=== PATIENT | female | born 1995 | race Caucasian/White ===

== ENCOUNTER 2022-06-16 03:45 | Outpatient (CLI) | payer MEDICAID, SELFPAY ==
[2022-06-16 16:53] LABS: HCT 33.8 % (36.0-46.0); HGB 11.4 g/dL (11.2-15.7); MCH 31.2 pg (27.0-33.0); MCHC 33.7 % (32.0-36.0); MCV 93 fL (80-95); MPV 10.3 fL (8.0-11.0); Platelet Count 182 10^3/uL (130-400); RBC 3.65 10^6/uL (3.93-5.22); RDW 13.3 % (11.7-14.6); RDW-SD 45.1 fL; WBC 14.99 10^3/uL (4.4-10.8)
[2022-06-16 17:02] LABS: Hemoglobin A1C 4.9 % (<5.7)
[2022-06-18 09:19] LABS: Hepatitis C Ab w Rflx HCV PCR Negative (Negative)
[2022-06-18 10:46] LABS: Varicella IgG Antibody Negative (See Note)
[2022-06-18 23:16] LABS: Syphilis IgG w/Reflex Nonreactive (Nonreactive)
== END 2022-06-16 03:46 | disposition home or self-care (01) ==
PROVIDERS: Visit Provider Advanced Practice Midwife
DX: Z34.93 Encounter for supervision of normal pregnancy, unspecified, third trimester (principal)
CPT/HCPCS: 36415; 85027; 86787; 86803; 86850; 86900; 86901; 83036; 86780

== ENCOUNTER 2022-06-16 17:03 | Outpatient (REF) | payer MEDICAID, SELFPAY ==
[2022-06-16 17:13] LABS: *AMPHETAMINES SCREEN URINE Negative (Negative); *BARBITURATES SCREEN URINE Negative (Negative); *BENZODIAZEPINES SCREEN URINE Negative (Negative); Cannabinoids THC Negative (Negative); Cocaine Screen,Urine Negative (Negative); METHADONE URINE SCREEN Negative (Negative); OPIATES URINE SCREEN Negative (Negative)
[2022-06-16 17:14] LABS: Tricyclic Antidepressants Negative (Negative)
[2022-06-22 12:28] LABS: Buprenorphine Negative ng/mL (Cutoff: 5.0); Norbuprenorphine Negative ng/mL (Cutoff: 2.5)
== END 2022-06-16 17:04 | disposition home or self-care (01) ==
LOC: LBN 17:03
PROVIDERS: Advanced Practice Midwife; Visit Provider Advanced Practice Midwife
DX: Z34.93 Encounter for supervision of normal pregnancy, unspecified, third trimester (principal); Z36.85 Encounter for antenatal screening for Streptococcus B; Z3A.35 35 weeks gestation of pregnancy
CPT/HCPCS: 80307; 80348; 87081

== ENCOUNTER 2022-07-17 12:04 | Inpatient (IN) | payer MEDICAID, SELFPAY ==
[2022-07-17] VITALS (62 sets, daily range): BP systolic 101–124; BP diastolic 56–76; PULSE 41–109; RESP 16–18; TEMP 36.4–36.7; O2SAT 99–100; BMI 25.7
[2022-07-17 12:25] LABS: HCT 38.3 % (36.0-46.0); HGB 12.6 g/dL (11.2-15.7); MCH 30.6 pg (27.0-33.0); MCHC 32.9 % (32.0-36.0); MCV 93 fL (80-95); MPV 10.6 fL (8.0-11.0); Platelet Count 178 10^3/uL (130-400); RBC 4.12 10^6/uL (3.93-5.22); RDW 13.3 % (11.7-14.6); RDW-SD 44.6 fL; WBC 14.91 10^3/uL (4.4-10.8)
--- NOTE | 2022-07-17 12:32 | W.PM.OBHPL1 ---
Date of service: 07/17/22 Time of Service: 12:32 Assessment and Plan Assessment and plan (1) Rupture, membranes, premature: Status: Acute Assessment and plan: Anticipate . Will continue to assess labor pattern. Augmentation of labor was discussed. Radha prefers to await spontaneous labor at this time. (2) Group B Streptococcus carrier, +RV culture, currently : Status: Acute Assessment and plan: Radha reports that she is hungry and would like to eat. Will plan to start antibiotics for propphylaxis after lunch. OB-HPI Labor/Delivery History of Present Illness Reason for Visit: Ruptured Membranes Chief Complaint: Suspected Rupture of Membranes , Associated Signs and Symptoms of Suspected ROM: none. PRIMITIVO Calculator Estimated Delivery Date Method Current WG Current Estimate 07/15/22 Ultrasound #1 40w 2d Other Estimates 07/17/22 Ultrasound #2 40w 0d Comments: Radha called this morning with a report of leaking tablespoon amounts of fluid. pos. pooling and nitrazine noted on admission. She presents with her and Sana davis for confirmation. She denies feeling contractions. History of Present Expected Delivery Route/Plan - CNM FOB/ - Tomasz Joshi (3rd child together) BG Wants to be active during early labor, plans epidural when active GBS POSITIVE, plan PCN prophylaxis in labor Specific Issues/Plan 1. History of macrosomia x2 w/mild SD for first 1a. Hgb A1C @ 36 wks is 4.9; nml glucola screen (117) 2. History of abdominoplasty & breast augmentation 3. History of anxiety/depression and depression 4. Vegan at the beginning of this , now eating meat 5, Varicella non immune 06/17, discuss with Radha and offer vaccine post . PFSH All Active Problems (Updated 07/17/22 @ 12:36 by Rochelle Wolfe CNM) Rupture, membranes, premature (Acute) Group B Streptococcus carrier, +RV culture, currently (Acute) Maternal varicella, non-immune (Acute) History of depression (Acute) Hx of macrosomia, of prior , currently (Acute) Anxiety (Chronic) (Acute) Medical History (Updated 07/17/22 @ 12:36 by Rochelle Wolfe CNM) Family history of thyroid disease in mother History of bulimia nervosa History of panic attacks History of shoulder dystocia in prior , currently in third trimester 2017 first delivery, weight 10 lb 2 oz, resolved in 1 minute, apgars 4/9 Surgical History (Updated 06/10/22 @ 13:40 by Aleyda Moreno) History of abdominoplasty September 2019 History of augmentation of both breasts Family History (Updated 06/10/22 @ 16:02 by Rochelle Wolfe CNM) Maternal Grandmother Diabetes Mother Hypothyroid Sleep apnea Social History Smoking risk assessment performed?: No History History 3 Para 2 Hx # Term Pregnancies 2 Multiple births 0 Hx # Pregnancies 0 Ectopic pregnancies 0 AB induced 0 Hx Number of Living Children 2 AB spontaneous 0 Past Pregnancies Del. Date GA/Weeks # Preg Succ Route Wgt Sex Labor Lgth Anesthesia Location [facility] 04/15/19 41 No Yes vaginal 10 lb 2 oz Male [address] [place] [address] 01/15/22 41 No Yes vaginal 9 lb Female [facility] Delivery Date: 04/15/19 Last Updated by: Rochelle Wolfe CNM shoulder dystocia, meconium group b strep, IOL for postdates, oligohydramnios Delivery Date: 01/15/22 Last Updated by: Rochelle Wolfe CNM Group B strep Meds Allergies and Home Medications Allergies Allergy/AdvReac Type Severity Reaction Status Date / Time No Known Drug Allergies Allergy Verified 07/14/22 09:31 house dust AdvReac Other (See Verified 07/14/22 09:31 Comment) Home Medications Medication Instructions Recorded Confirmed Type Lactobacillus cap PO 06/10/22 07/14/22 History acidophil,plantar-Bifido no.7 15 billion cell capsule (up4 Probiotics Adult) calcium carbonate 600 mg calcium 600 mg PO DAILY 06/10/22 07/14/22 History (1,500 mg) tablet (Calcium) cyanocobalamin (vitamin B-12) 1,000 mcg PO DAILY 06/10/22 07/14/22 History 1,000 mcg capsule ferrous sulfate 325 mg (65 mg 325 mg PO DAILY 06/10/22 07/14/22 History iron) tablet (FeroSul) vitamins no.121-iron 28 tab PO DAILY 06/10/22 07/14/22 History mg-folic acid 800 mcg tablet Exam Detailed Labor and Delivery Exam Barajas Score: Cervical Points Exam 0 1 2 3 Dilation Closed 1-2cm 3-4 cm 5-6cm Effacement 0-30% 40-50% 60-70% 80% Consistency Firm Medium Soft Station -3 -2 -1,0 +1,+2 Position Posterior Mid Anterior Amniotic Membrane Status: Ruptured Rupture Method: Spontaneous Amniotic Fluid: Clear Pooling: Positive Nitrazine: Positive Monitor Mode: External Contraction Frequency(min): irregular Contraction Duration(sec): 50 Contraction Intensity: Mild/Moderate Comments: cervical exam deferred at this time. vertex confirmed by Jaclyn. Fetus A Heart Rate Baseline: 130 Monitor Accelerations: 15 X 15 Monitor Decelerations: None Variability: Moderate (6-25 BPM) Presentation: Vertex Categories: Category I Date of Membrane Rupture: 07/17/22 Respiratory Exam Respiratory Exam: Normal Cardiovascular Exam Cardiovascular Exam: Normal Abdominal Exam Abdominal Exam: Normal Exam Exam: Normal Extremities Exam Extremities Exam: Normal Psychiatric Exam Psychiatric Exam: Normal Results Abnormal Lab Findings: Abnormal Labs 07/17/22 12:15 WBC 14.91 H Risk Assessment Risk for Shoulder Dystocia Historical/Initial OB: POSITIVE FOR: Previous Macrosomia (mild SD during 10 lb 2 oz delivery) 40 Weeks: NEGATIVE FOR: EFW> 4500 gms, Maternal Weight Gain >40lb or Post Dates Counseling: Advised of increased risk for SD if wt >4500 gms per hx at first Delivery Plan @ 36wks: spont labor, , Delivery Plan @ 40 wks: spont labor, Risk for Post- Hemorrhage Initial: NEGATIVE FOR: Multiple Gestation, Previous PPH, Known Clotting Deficiency, Grand Multiparity or Anticoagulation Counseled re: Active Management: Yes Risks Reviewed Risks Reviewed Upon Admission: Yes
[2022-07-17 12:47] LABS: ROM Plus Negative
[2022-07-17] MEDS: Normal Saline Flush 10 ML SYR IVP ×2 (13:53→18:05)
[2022-07-17] MEDS: Penicillin G POT. 5,000,000 UNITS in Normal Saline 100 ML 200 UNITS IVPB (13:53)
--- NOTE | 2022-07-17 14:50 | NUR.NOTE ---
Pt would like to leave the unit to walk around outside. Pt and Abigail have already spoken with provider and provider informed them they needed to sign a paper to do so but that is ok. RN checked with provider, provider confirmed what pt and abigail said. RN had pt sign form. Pt will return to unit once finished with walk. Nursing Note:
[2022-07-17 16:24] LABS: Source Nasal/Nares
[2022-07-17 16:55] LABS: COVID-19 PCR Negative (Negative)
[2022-07-17] MEDS: Penicillin G POT. 3,000,000 UNITS in Normal Saline 50 ML 100 UNITS IVPB ×2 (18:05→22:03)
--- NOTE | 2022-07-17 19:06 | PGE_ITS ---
Date of service: 07/17/22 Time of Service: 19:07 Informed Consent Informed Consent: Augmentation of Labor and Risk,Benefits,Alternatives Discussed (risks of infection discussed with awaiting spontaneous labor or augmentation of labor) Pelvic Exam Dilation: 0 Effacement (%): 50 station: -2 Cervix Position: posterior Consistency: medium Contractions Monitor Mode: External Contraction Frequency(min): irregular Contraction Duration(sec): 50-60 Intensity: Mild/Moderate Fetus A Monitor: External (US) Heart Rate Baseline: 130 Presentation: Vertex Variability: Moderate (6-25 BPM) Categories: Category I FHR Rhythm: Regular Accelerations: 15 X 15 Decelerations: None Assessment and Plan Assessment and plan (1) Rupture, membranes, premature: Status: Acute Assessment and plan: Discussed option of expectant management or labor augmentation. Radha agrees to cervical ripening and that was ordered. Objective Abnormal lab results 07/17/22 Range/Units 12:15 WBC 14.91 H (4.4-10.8) 10^3/uL Temp Pulse Resp BP 97.9 F 86 18 119/67 07/17/22 18:14 07/17/22 16:19 07/17/22 16:19 07/17/22 16:19 Laboratory Results WBC 14.91 10^3/uL (4.4-10.8) H 07/17/22 12:15 RBC 4.12 10^6/uL (3.93-5.22) 07/17/22 12:15 Hgb 12.6 g/dL (11.2-15.7) 07/17/22 12:15 Hct 38.3 % (36.0-46.0) 07/17/22 12:15 MCV 93 fL (80-95) 07/17/22 12:15 MCH 30.6 pg (27.0-33.0) 07/17/22 12:15 MCHC 32.9 % (32.0-36.0) 07/17/22 12:15 RDW 13.3 % (11.7-14.6) 07/17/22 12:15 Plt Count 178 10^3/uL (130-400) 07/17/22 12:15 MPV 10.6 fL (8.0-11.0) 07/17/22 12:15 Membranes Rupture Negative 07/17/22 11:50 COVID-19 Source Nasal/Nares 07/17/22 14:10 SARS-CoV-2 (PCR) Negative (Negative) 07/17/22 14:10 Patient ABO/Rh O Positive 07/17/22 12:15 Antibody Screen NEGATIVE 07/17/22 12:15 Subjective Interval history since last seen: Radha is feeling contractions which are irregular.She is coping well with contractions.She is receiving support from her [facility]. Results Hemoglobin/Hematocrit: Hgb 12.6 g/dL (11.2-15.7) 07/17/22 12:15 Hct 38.3 % (36.0-46.0) 07/17/22 12:15 Abnormal Lab Findings: Abnormal Labs 07/17/22 12:15 WBC 14.91 H
[2022-07-17] MEDS: miSOPROStol 25 MCG TAB PO (19:54)
[2022-07-17] MEDS: Lactated Ringers 250 ML 500 ML IV (22:35)
--- NOTE | 2022-07-17 22:41 | W.ANESPRE ---
General Info Date of Service Date Performed: 07/17/22 Height: 5 ft 11 in Weight: 83.461 kg Body Mass Index (BMI): 25.7 Meds Allergies and Home Medications Allergies Allergy/AdvReac Type Severity Reaction Status Date / Time No Known Drug Allergies Allergy Verified 07/14/22 09:31 house dust AdvReac Other (See Verified 07/14/22 09:31 Comment) Home Medication Medication Instructions Recorded Lactobacillus 1 cap PO 1XD 06/10/22 acidophil,plantar-Bifido no.7 15 billion cell capsule (up4 Probiotics Adult) calcium carbonate 600 mg calcium 600 mg PO DAILY 06/10/22 (1,500 mg) tablet (Calcium) cyanocobalamin (vitamin B-12) 1,000 mcg PO DAILY 06/10/22 1,000 mcg capsule ferrous sulfate 325 mg (65 mg 325 mg PO DAILY 06/10/22 iron) tablet (FeroSul) vitamins no.121-iron 28 1 tab PO DAILY 06/10/22 mg-folic acid 800 mcg tablet Current Visit Medications: Current Medications Generic Name Dose Route Start Last Admin Trade Name Freq PRN Reason Stop Dose Admin Sodium Chloride 500 mls @ 0 mls/hr 07/17/22 12:03 Saline 500ml Bag IV PRN PRN As Directed Penicillin G Potassium 3,000, 50 mls @ 100 mls/hr 07/17/22 16:00 07/17/22 22:03 000 units/ Sodium Chloride IVPB 100 mls/hr Q4H MICHELLE Administration Sodium Chloride 500 mls @ 0 mls/hr 07/17/22 12:05 Saline 500ml Bag IV PRN PRN As Directed IV Miscellaneous Supplies 1 each 07/17/22 12:15 Iv Access IV DIRECTED MICHELLE IV Miscellaneous Supplies 1 each 07/17/22 12:15 Iv Access IV DIRECTED MICHELLE Misoprostol 25 mcg 07/17/22 20:00 07/17/22 19:54 Misoprostol 25 Mcg Tab PO 25 mcg Q4H MICHELLE Administration Sodium Chloride 0 ml 07/17/22 12:03 Normal Saline Flush 10 Ml Syr IVP PRN PRN Sodium Chloride 0 ml 07/17/22 12:05 07/17/22 18:05 Normal Saline Flush 10 Ml Syr IVP 10 ml PRN PRN Administration Terbutaline Sulfate 0.25 mg 07/17/22 19:04 Terbutaline 1 Mg/Ml Vial SC PRN PRN Zolpidem Tartrate 10 mg 07/17/22 21:00 Zolpidem 5 Mg Tab PO 07/18/22 06:00 2100 MICHELLE PFSH Active Problems Active Problems: Problem Status Onset Code Rupture, membranes, premature O42.90 Group B Streptococcus carrier, +RV culture, currently O99.820 Maternal varicella, non-immune O09.899, Z28.39 History of depression Z86.59 Hx of macrosomia, of prior , currently O09.299 Anxiety F41.9 Z34.90 Medical History Medical History (Updated 07/17/22 @ 12:36 by Rochelle Wolfe CNM) Family history of thyroid disease in mother History of bulimia nervosa History of panic attacks History of shoulder dystocia in prior , currently in third trimester 2018 first delivery, weight 10 lb 2 oz, resolved in 1 minute, apgars 4/9 Surgical History Surgical History (Updated 06/10/22 @ 13:40 by Aleyda Moreno) History of abdominoplasty September 2019 History of augmentation of both breasts Tobacco Smoking/Tobacco Use Status: Never Alcohol Alcohol Intake: never Substance Use Substance use: Never Substance use type: does not use Prental History History 3 Para 2 Hx # Term Pregnancies 2 Multiple births 0 Hx # Pregnancies 0 Ectopic pregnancies 0 AB induced 0 Hx Number of Living Children 2 AB spontaneous 0 Past Pregnancies Del. Date GA/Weeks # Preg Succ Route Wgt Sex Labor Lgth Anesthesia Location [facility] 04/15/19 41 No Yes vaginal 4592.623 g Male [address] [place] [address] 01/15/22 41 No Yes vaginal 4082.331 g Female [facility] Delivery Date: 04/15/19 Last Updated by: Rochelle Wolfe CNM shoulder dystocia, meconium group b strep, IOL for postdates, oligohydramnios Delivery Date: 01/15/22 Last Updated by: Rochelle Wolfe CNM Group B strep Vital Signs and Lab Results Vital Signs Most Recent Vital Signs in EMR: Most Recent Vital Signs Temp Pulse Resp BP 36.7 C 75 16 112/56 L 07/17/22 22:38 07/17/22 21:58 07/17/22 19:14 07/17/22 19:14 Lab Results Result Diagrams: 07/17/22 12:15 Blood Type / Crossmatch: Patient ABO/Rh O Positive 07/17/22 Antibody Screen NEGATIVE 07/17/22 Complete Blood Count: White Blood Count 14.91 10^3/uL (4.4-10.8) H 07/17/22 12:15 Red Blood Count 4.12 10^6/uL (3.93-5.22) 07/17/22 12:15 Hemoglobin 12.6 g/dL (11.2-15.7) 07/17/22 12:15 Hematocrit 38.3 % (36.0-46.0) 07/17/22 12:15 Platelet Count 178 10^3/uL (130-400) 07/17/22 12:15 Complete Metabolic Panel: No Data to Display Liver Function Panel: No Data to Display Coagulation Panel: No Data to Display Cardiac Panel: No Data to Display Arterial Blood Gas: No Data to Display Venous Blood Gas: No Data to Display Pancreas Panel: No Data to Display Thyroid Panel: No Data to Display Infectious Disease: Coronavirus (COVID-19)(PCR) Negative (Negative) 07/17/22 14:10 Coronavirus 2019 Source Nasal/Nares 07/17/22 14:10 Blood Cultures: No Data to Display Toxicology Panel: No Data to Display Panel: No Data to Display Anesthesia Assessment and Plan Anesthesia History Personal History: No History of Anesthesia Complications Family History: No Family History of Anesthesia Complications Exercise Tolerance Exercise Tolerance: Metabolic Equivalents>4 Cardiac & Pulmonary Exam Cardiac Exam: Normal S1/S2 Heart Sounds Pulmonary Exam: Clear Bilateral Breath Sounds Implantable Cardiac Device Does patient have a Pacemaker or an ICD?: No Airway Exam Known Difficult Airway: No Mallampati Class: 2 Mouth Opening: Normal (> 3cm) Thyromental Distance: Greater than 3 cm Neck Range of Motion: Full ROM Neck Circumference: Normal Teeth Condition: Normal Dentition ASA Classification ASA Score: ASA 2 Emergency Case?: No NPO Status NPO Status: Full Stomach Status Status: Confirmed Anesthesia Plan Resuscitation Status: Full Code Anesthesia Technique: Epidural Anesthesia Airway Planned: Natural Airway Pain Management: Epidural Monitors Used: Standard Monitors Preoperative Comments:: 27 yo female requests labor epidural. Sig PMHx: anxiety, panic attacks, depression, never smoker, Plt: 178. Previous epidurals x 2. States no issues.
[2022-07-17] MEDS: FentaNYL/ROPIvacaine 2 mcg/ml and 0.1% 200 ML CADD Cassette EP (23:09)
--- NOTE | 2022-07-17 23:13 | W.ANESNEU ---
Epidural/Spinal Catheter Date Performed: 07/17/22 Procedure Start: 23:02 Procedure Stop: 23:15 Requesting Provider: Rochelle Wolfe Procedure Location: Obstetrics Reason Performed: Labor Epidural Standard Monitors Applied: ECG, Blood Pressure and SpO2 Patient Position: Sitting Sedation Given (Indicate Dose Given): No Sedation given Patient Mental Status: Awake Sterility: Hand Hygiene, Surgical Cap, Surgical Mask, Sterile Gloves, Sterile Drape/Sheet and Chlorhexidine Procedure Location: L3-L4 Interspace Epidural Needle: Tuohy 17 Guage Needle Length: 3.5 Inch Needle Approach: Midline Epidural Procedure: MONICA to Saline Used Catheter Placed?: Catheter Placed (wire renforced. ) Test Dose (Indicate Dose Given): 3ml 1.5% Lidocaine with 1:200K Epinephrine Given and Negative Test Dose Loss of Resistance Depth (cm): 5 Catheter depth at skin (cm): 11 Dressing: Sorbaview Dressing Placed and Mastisol Used Epidural Provider Bolus (Indicate Dose Given): Total Ropivacaine 0.125% with Fentanyl 2mcg/ml Given from pump. (ml) (5 mL + 5 mL) Dose:: 10 mL Additives (Indicate Dose Given ): None Infusion Medication: No Infusion Started Block Level: T6 Paresthesia: None Ultrasound: Not Used Number of Attempts (See previous attempts in note section): 1 Procedure Tolerated: No Complications Procedure Outcome: Successful Performed By: Uri Carmona
--- NOTE | 2022-07-17 23:16 | W.PM.OBNL1 ---
Date of service: 07/17/22 Time of Service: 23:16 Informed Consent Informed Consent: Augmentation of Labor and Risk,Benefits,Alternatives Discussed (risks of infection discussed with awaiting spontaneous labor or augmentation of labor) Pelvic Exam Dilation: 7 Effacement (%): 80 station: -1 Cervix Position: mid Consistency: soft Pooling: Positive Contractions Monitor Mode: External Contraction Frequency(min): every 2 minutes Contraction Duration(sec): 60 Intensity: Moderate/Strong Fetus A Monitor: External (US) Heart Rate Baseline: 140 Variability: Moderate (6-25 BPM) Categories: Category I FHR Rhythm: Regular Accelerations: 15 X 15 Decelerations: None Assessment and Plan Assessment and plan (1) Rupture, membranes, premature: Status: Acute (2) Premature rupture of membranes, onset of labour within 24 hours, delivered, full term: Status: Acute Assessment and plan: Anticipate . Comfort measures as needed. Objective Abnormal lab results 07/17/22 Range/Units 12:15 WBC 14.91 H (4.4-10.8) 10^3/uL Temp Pulse Resp BP Pulse Ox 98.1 F 89 16 109/63 100 07/17/22 22:38 07/17/22 23:15 07/17/22 19:14 07/17/22 23:13 07/17/22 23:15 Laboratory Results WBC 14.91 10^3/uL (4.4-10.8) H 07/17/22 12:15 RBC 4.12 10^6/uL (3.93-5.22) 07/17/22 12:15 Hgb 12.6 g/dL (11.2-15.7) 07/17/22 12:15 Hct 38.3 % (36.0-46.0) 07/17/22 12:15 MCV 93 fL (80-95) 07/17/22 12:15 MCH 30.6 pg (27.0-33.0) 07/17/22 12:15 MCHC 32.9 % (32.0-36.0) 07/17/22 12:15 RDW 13.3 % (11.7-14.6) 07/17/22 12:15 Plt Count 178 10^3/uL (130-400) 07/17/22 12:15 MPV 10.6 fL (8.0-11.0) 07/17/22 12:15 Membranes Rupture Negative 07/17/22 11:50 COVID-19 Source Nasal/Nares 07/17/22 14:10 SARS-CoV-2 (PCR) Negative (Negative) 07/17/22 14:10 Patient ABO/Rh O Positive 07/17/22 12:15 Antibody Screen NEGATIVE 07/17/22 12:15 Subjective Interval history since last seen: Contractions became more painful one hour after misoprostol received. Radha requested an epidural and it was placed by Bong Carmona CRNA and is having good effect. Results Hemoglobin/Hematocrit: Hgb 12.6 g/dL (11.2-15.7) 07/17/22 12:15 Hct 38.3 % (36.0-46.0) 07/17/22 12:15 Abnormal Lab Findings: Abnormal Labs 07/17/22 12:15 WBC 14.91 H
[2022-07-18] VITALS (54 sets, daily range): BP systolic 92–117; BP diastolic 48–88; PULSE 69–116; RESP 16; TEMP 36.8–36.9; O2SAT 82–100
[2022-07-18] MEDS: Oxytocin/Normal Saline 30 UNIT/500 ML BAG 167 UNITS IV (02:30)
--- NOTE | 2022-07-18 02:58 | OBVDS_ITS ---
Date of service: 07/18/22 Time of Service: 02:58 OB Labor/ Delivery Information Baby A Delivery Delivery Method: Spontaneaous Presentation: Vertex Amniotic Fluid: Clear Estimated Blood Loss: 300 Delivery Outcome: Liveborn Transferred: Remains with Mother Note: FHTs 130-140s during first stage of labor. FHTs 130s in second stage with variable decelerations associated with pushing. Radha received an epidural with excellent effect and progressed to full dilation and began pushing. Second stage huddle was done. Spontaneous delivery of female infant delivered in direct OP position. Baby was placed on mother's abdomen and dried and stimulated. Spontaneous cry. Cord was clamped and cut by the baby's father. The placenta delivered spontaneously and appears to by intact with a three vessel cord. Pitocin 30 units IV was administered after delivery of the placenta. The perineum was inspected and it appears to be intact. The baby did breastfeed. After delivery, Mother and baby and father of the baby were stable and bonding well in the delivery room and there were no complications. Radha and Tomasz's two children were present for the as well. Providers Nurse Php Mysql Developer: Rochelle Wolfe Nurse: Kimberley Albarado Nurse: Lesa Puente Labor/Delivery Information Number of Babies in Womb: 1 Steroids Given: None Reason Steroids Not Administered: N/A Group Beta Strep: Positive Antibiotics Administered: Yes Number of Doses of Antibiotics: 3 Rubella Status: Immune Blood Type: O+ Varicella Immunity: Nonimmune Maternal Complications: None Stages of Labor Complete Dilatation Date: 07/18/22 Complete Dilatation Time: 01:10 ROM Baby A: 07/17/22 ROM Baby A: 09:00 Infant Delivery Date-Baby A: 07/18/22 Infant Delivery Time-Baby A: 02:29 Labor Stage 2 Duration: 1 hours and 19 minutes Placenta Delivery Date-Baby A: 07/18/22 Placenta Delivery Time-Baby A: 02:37 Labor-Stage 3 Duration: 8 minutes Placenta Cultured: Yes Placenta Status: Delivered Baby A Infant Gender: Female Gestational Age in Weeks/Days: 40 Weeks and 3 Days
--- NOTE | 2022-07-18 06:10 | W.ANESPOSTOP ---
Postoperative Evaluation Date, Time and Location Date Performed: 07/18/22 Time Performed: 06:10 Patient Location: Obstetrics Vital Signs Most Recent Imported Vital Signs: Most Recent Vital Signs Temp Pulse Resp BP Pulse Ox 36.9 C 83 16 109/56 L 84 L 07/18/22 04:43 07/18/22 04:22 07/18/22 00:00 07/18/22 04:22 07/18/22 02:29 Pain Score Most Recent Pain Score: Most Recent Pain Score Pain Level [Abdomen] 1 07/18/22 00:00 Pain Level 1 07/17/22 13:54 Assessment Mental Status: Awake (Alert & Oriented to Patient Baseline) Airway and Respiratory Function: Patent airway with normal (patient baseline) respiratory exam Cardiovascular Function: Hemodynamically Stable Hydration Status: Adequately Hydrated Nausea & Vomiting: No Nausea or Vomiting Pain: Pt. Denies Any Pain Peripheral Nerve Block: Patient did not receive a nerve block
[2022-07-18 06:43] LABS: HCT 34.2 % (36.0-46.0); HGB 11.7 g/dL (11.2-15.7); MCHC 34.2 % (32.0-36.0); MCV 91 fL (80-95); MPV 10.8 fL (8.0-11.0); Platelet Count 169 10^3/uL (130-400); RBC 3.78 10^6/uL (3.93-5.22); RDW 13.3 % (11.7-14.6); RDW-SD 43.7 fL; WBC 23.72 10^3/uL (4.4-10.8)
[2022-07-18] MEDS: Acetaminophen 325 MG TAB 650 MG PO ×3 (11:37→22:09)
[2022-07-18] MEDS: Ibuprofen 600 MG TAB PO ×2 (11:37→17:40)
[2022-07-19] MEDS: Ibuprofen 600 MG TAB PO ×3 (00:12→14:39)
[2022-07-19 08:45] VITALS: BP 113/71; PULSE 77; RESP 18; TEMP 36.6
[2022-07-19] MEDS: Docusate Sodium 100 MG CAP PO (09:06)
[2022-07-19] MEDS: Acetaminophen 325 MG TAB 650 MG PO ×2 (09:06→14:40)
--- NOTE | 2022-07-19 15:52 | DSE_ITS ---
Date of service: 07/19/22 Time of Service: 15:52 DS: Diagnosis Discharge Diagnosis (1) Term of female : Status: Acute Asessment and Plan: Radha slept only 1 hour last night. She requests discharge to home after 24 hours. She is caring for baby independently. She has good support from her partner. Pain is managed well with oral analgesics. well and received guidance from [facility] due to history of breast augmentation and sore nipples in the past. A - stable mother and baby , Post day 1, history of post depression after first . History of breast augmentation P - Discharge to home today. Routine post instructions including signs of post depression. [facility]. (2) Urinary retention with incomplete bladder emptying: Status: Acute Asessment and Plan: Radha reported feeling unaware that her bladder is full. Her fundus was up and to the left this morning at 0830. She got up and voided 800 cc. There was 295 cc recorded of residual urine with a bladder scanner. After this episode, [place] l[place] was encouraged to void hourly and residual was checked after each void with residual recorded at 119-250 cc. Her abdomen was assessed after voiding and her fundus was firm and ddown 3 with no bladder palpable. At 1500, Radha voided and was straight catheterized for a few drops of urine. The bladder scanner recorded no residual at that time. Denisha was encouraged to void every 1-2 hours whether she has urge or not and to assess for full bladder by pressing abdominally. She was able to demonstrate today bladder fullness by pressing suprapubically and void of 200 cc was confirmed after self-assessment. She was encouraged to call with any further concerns. Discharge Plan Disposition Patient Disposition: Home Condition: Good Discharge Details Reason For Visit: Ruptured Membranes Admit Date/Time: 07/17/22 12:04 Admit Provider: Rochelle Wolfe Attending Provider: Rochelle Wolfe Primary Care Provider: Unknown,Unknown Home Meds and New Rx's Prescriptions: No Action PNV no.[id number] acid 28 mg iron- 800 mcg tablet 1 tab PO DAILY ferrous sulfate [FeroSul] 325 mg (65 mg iron) tablet 325 mg PO DAILY calcium carbonate [Calcium 600] 600 mg calcium (1,500 mg) tablet 600 mg PO DAILY cyanocobalamin (vitamin B-12) 1,000 mcg capsule 1,000 mcg PO DAILY up4 Probiotics Adult 15 billion cell capsule 1 cap PO 1XD Discharge Instructions Stand Alone Forms: BC Instructions, BC Post Vaginal Deliver Activity:: Activity as Tolerated Equipment/Supplies:: No Equipment Needed Diet:: As Tolerated Discharge Orders Discharge Orders: Discharge Order (Routine); Ordered 07/19/22 Ordered By: Rochelle Wolfe OB:DS Summary Summary Vaginal Delivery Method: Spontaneaous Episiotomy Description: None Laceration Description: None Contraception Discussed Contraception Discussed: No, Infant Gender-Baby A: Female weight: 9 lb 8.913 oz Status at Discharge Functional status at discharge: independent ambulation Overall status at discharge: patient is back to baseline Mental Status: mental status grossly normal Speech and Movement: speech and movement normal Mood: congruent mood Affect: normal affect Exam Physical Exam Vital signs: Temp Pulse Resp BP Pulse Ox 97.9 F 77 18 113/71 84 L 07/19/22 08:45 07/19/22 08:45 07/19/22 08:45 07/19/22 08:45 07/18/22 02:29 Respiratory Exam Respiratory Exam: Normal Cardiovascular Exam Cardiovascular Exam: Normal Fundal Exam Fundus: Below Umbilicus Extremities Exam Extremity Exam: Normal Skin Exam Skin Exam: Normal Psychiatric Exam Psychiatric Exam: Normal PFSH All Active Problems (Updated 07/19/22 @ 15:53 by Rochelle Wolfe CNM) Urinary retention with incomplete bladder emptying (Acute) Term of female (Acute) Premature rupture of membranes, onset of labour within 24 hours, delivered, full term (Acute) Rupture, membranes, premature (Acute) Group B Streptococcus carrier, +RV culture, currently (Acute) Maternal varicella, non-immune (Acute) History of depression (Acute) Hx of macrosomia, infant of prior , currently (Acute) Anxiety (Chronic) (Acute) Medical History (Updated 07/19/22 @ 15:53 by Rochelle Wolfe CNM) Family history of thyroid disease in mother History of bulimia nervosa History of panic attacks History of shoulder dystocia in prior , currently in third trimester 2018 first delivery, weight 10 lb 2 oz, resolved in 1 minute, apgars 4/9 Surgical History (Updated 06/10/22 @ 13:40 by Aleyda Moreno) History of abdominoplasty September 2019 History of augmentation of both breasts Family History (Updated 06/10/22 @ 16:02 by Rochelle Wolfe CNM) Maternal Grandmother Diabetes Mother Hypothyroid Sleep apnea Social History Smoking/Tobacco Use Status: Never Smoking risk assessment performed?: Yes Alcohol Intake: never Drug use: Never Substance use type: does not use Do you feel safe at home: Yes Do you feel safe in your relationship?: Yes History History 3 Para 2 Hx # Term Pregnancies 2 Multiple births 0 Hx # Pregnancies 0 Ectopic pregnancies 0 AB induced 0 Hx Number of Living Children 2 AB spontaneous 0 Past Pregnancies Del. Date GA/Weeks # Preg Succ Route Wgt Sex Labor Lgth Anesth esia Location Prov Complic 04/15/19 41 No Yes vaginal 10 lb 2 oz Male 12 [facility] [place] 01/15/22 41 No Yes vaginal 9 lb Female [facility] [place] Delivery Date: 04/15/19 Last Updated by: Rochelle Wolfe CNM shoulder dystocia, meconium group b strep, IOL for postdates, oligohydramnios Delivery Date: 01/15/22 Last Updated by: Rochelle Wolfe CNM Group B strep DS: Data Vitals/I&O Vitals and I&O: Vital Signs Temperature 97.9 F 07/19/22 08:45 Pulse 77 07/19/22 08:45 Pulse Rhythm Regular 07/19/22 09:32 Respiratory Rate 18 07/19/22 08:45 Respiratory Depth Normal 07/19/22 09:32 Blood Pressure 113/71 07/19/22 08:45 Blood Pressure Mean 85 07/19/22 08:45 Pulse Oximetry 84 L 07/18/22 02:29 Oxygen Delivery Method Room Air 07/17/22 13:54 Oxygen Flow Rate 0 07/17/22 13:54 Pain Level 6 07/19/22 00:22 Intake & Output 07/18/22 07/19/22 07/19/22 23:59 11:59 23:59 Output Total 1600 / 2625 1025 / 2625 Balance -1600 / -2625 -1025 / -2625 Output: Urine 1600 / 2625 1025 / 2625 Other: Urine Color Pale Pale Comment drops of urine, bladder feels empty to palpation
== END 2022-07-19 18:35 | disposition home or self-care (01) | DRG 807 ==
LOC: OBS 12:30
PROVIDERS: Admitting Provider Advanced Practice Midwife; Visit Provider Advanced Practice Midwife
DX: O42.02 Full-term premature rupture of membranes, onset of labor within 24 hours of rupture (principal); Z37.0 Single live birth; O99.824 Streptococcus B carrier state complicating childbirth; O99.344 Other mental disorders complicating childbirth; F41.8 Other specified anxiety disorders; Z3A.40 40 weeks gestation of pregnancy
CPT/HCPCS: 36415; 84112; 85027; 86850; 86900; 86901; 87635; J2540; J3490

== ENCOUNTER → 2023-07-07 00:18 | Outpatient (CLI) | payer MEDICAID, SELFPAY ==
--- NOTE | 2023-07-07 07:15 | DI.US_ITS ---
Exam(s) US PELVIS TRANSVAGINAL EXAM: US PELVIS TRANSVAGINAL CLINICAL HISTORY: lower abd cramps, bloating,bilat lower quad pain,r10.31,r10.32 TECHNIQUE: Transabdominal and transvaginal imaging was performed using standard protocol. COMPARISON: No exams were available for comparison FINDINGS: UTERUS: Anteverted. 7.9 x 4.1 x 4.7 cm Endometrium: 8 mm Myometrium: Unremarkable. Cervix: Unremarkable. OVARIES: Right: Cyst or mass: None. Left: Cyst or mass: None. DOPPLER: Color: Symmetric and uniform flow to both ovaries. No hyperemia. Mildly dilated pelvic veins up to 6 millimeters. Findings could could indicate pelvic congestion syndrome. CUL-DE-SAC: Free fluid: None. IMPRESSION: 1. Normal-appearing uterus with endometrial stripe within normal limits. 2. Unremarkable bilateral ovaries. 3. Dilated bilateral pelvic veins could indicate pelvic congestion syndrome. DATA REPOSITORY:
== END ==
PROVIDERS: Visit Provider Advanced Practice Midwife
DX: R10.31 Right lower quadrant pain (principal); R10.32 Left lower quadrant pain
CPT/HCPCS: 76830; 76856

== ENCOUNTER 2024-07-24 02:51 | Outpatient (CLI) | payer MEDICAID, SELFPAY ==
--- NOTE | 2024-07-24 07:45 | DI.US_ITS ---
Exam(s) US OB 1ST TRIMESTER EXAM: US OB 1ST TRIMESTER CLINICAL HISTORY: dating/viability in ,z3a.11. COMPARISON: US US PELVIS TRANSVAGINAL from 07/07/2023 TECHNIQUE: Transabdominal Transvaginal first trimester obstetrical ultrasound performed. FINDINGS: Sonographic images demonstrate a single intrauterine gestation. A yolk sac and pole are seen. Sonographically assessed gestational age based upon crown-rump length of 22.2 cm is: 8+ 6 weeks Estimated date of delivery based on this ultrasound is: 27 February 2025 Estimated date of delivery based upon LMP: 30 January 2025 heart rate motion is Dopplered at: 178 bpm. No free fluid identified. Both ovaries appear sonographically normal. Pelvic Measurments Uterus: 10.8 x 5.4 x 9.2 cm Rt Ovary: 3.9 x 3.1 x 2.3 cm Lt Ovary: 4.3 x 2.0 x 3.5 cm IMPRESSION: Single live intrauterine gestation measuring 8 +6 weeks. DATA REPOSITORY:
== END 2024-07-24 03:11 ==
LOC: DI 02:51
PROVIDERS: Visit Provider Advanced Practice Midwife
DX: Z3A.11 11 weeks gestation of pregnancy (principal); Z34.81 Encounter for supervision of other normal pregnancy, first trimester
CPT/HCPCS: 76801

== ENCOUNTER 2024-07-24 12:52 | Outpatient (REF) | payer MEDICAID, SELFPAY ==
--- NOTE | 2024-07-24 11:29 | PAPFT_PTH ---
PATIENT: Alicja Smith LOC: [facility] U#:[id number] AGE/SX: 29/F ROOM: RE07/24/[address]: Maggy Darling : 1995 BED: DIS: 07/24/2024 SPEC #: [id number] RECD: 07/24/24 13:12 STATUS: SIDRA REQ #: [id number] ZAKIA: 07/24/24 11:[address]: Maggy Darling DEPT: [facility] Cytology RECD BY: Ashtyn Roper ENTERED: 07/24/24 13:12 SP TYPE: PAPFT OTHR DR: Unknown,Unknown Tissues: 1 - CX/ENDOCX FOR PAP SMEARS Procedures: PAP THIN PREP/UVM Screening Comments: [id number] (CHLAMYDIA/GC)
[2024-07-24 15:22] LABS: *AMPHETAMINES SCREEN URINE Negative (Negative); *BARBITURATES SCREEN URINE Negative (Negative); *BENZODIAZEPINES SCREEN URINE Negative (Negative); Cannabinoids THC Negative (Negative); Cocaine Screen,Urine Negative (Negative); METHADONE URINE SCREEN Negative (Negative); OPIATES URINE SCREEN Negative (Negative)
[2024-07-24 15:24] LABS: Tricyclic Antidepressants Negative (Negative)
[2024-07-25 11:26] LABS: Fentanyl Scr w/Rfx Confirm Negative ng/mL (<1)
[2024-07-25 12:50] LABS: Chlamydia Result Negative (Negative); GC Result Negative (Negative)
[2024-07-28 12:16] LABS: Buprenorphine Negative ng/mL (Cutoff: 5.0); Norbuprenorphine Negative ng/mL (Cutoff: 2.5)
== END 2024-07-24 12:53 | disposition home or self-care (01) ==
LOC: LBN 12:52
PROVIDERS: Visit Provider Advanced Practice Midwife
DX: Z3A.11 11 weeks gestation of pregnancy (principal); Z34.81 Encounter for supervision of other normal pregnancy, first trimester
CPT/HCPCS: 80307; 80348; 87491; 87591; 88142; 87086

== ENCOUNTER 2024-08-21 03:23 | Outpatient (CLI) | payer MEDICAID, SELFPAY ==
[2024-08-21 10:35] LABS: Panorama Kit Sent via Fed Ex
[2024-08-21 10:40] LABS: Abs Immature Grans 0.04 10^3/uL (0.0-0.06); Absolute Basophil Count 0.04 10^3/uL (0.0-0.2); Absolute Lymphocyte Count 1.82 10^3/uL (1.2-3.4); Absolute Monocyte Count 0.46 10^3/uL (0.1-0.8); Absolute Neutrophil Count 7.26 10^3/uL (1.2-6.7); Basophils % 0.4 %; HCT 37.8 % (36.0-46.0); HGB 12.7 g/dL (11.2-15.7); Immature Grans % 0.4 %; Lymphocytes % 18.7 %; MCHC 33.6 % (32.0-36.0); MCV 92 fL (80-95); MPV 10.4 fL (8.0-11.0); Monocytes % 4.7 %; Neutrophils % 74.8 %; Platelet Count 215 10^3/uL (130-400); RDW 13.6 % (11.7-14.6); RDW-SD 45.8 fL; WBC 9.72 10^3/uL (4.4-10.8)
[2024-08-21 19:00] LABS: Hepatitis B Surface Ag Negative (Negative)
[2024-08-21 19:33] LABS: HIV-1/2 Ag & Ab Screen Negative (Negative); Hepatitis C Ab w Rflx HCV PCR Negative (Negative)
[2024-08-22 10:45] LABS: Rubella IgG Ab (UVM) Positive (See Note); Varicella IgG Antibody Negative (See Note)
[2024-08-23 23:11] LABS: Syphilis IgG w/Reflex Nonreactive (Nonreactive)
== END 2024-08-21 03:24 | disposition home or self-care (01) ==
LOC: LBO 03:23
PROVIDERS: Visit Provider Advanced Practice Midwife
DX: Z34.91 Encounter for supervision of normal pregnancy, unspecified, first trimester (principal); Z3A.11 11 weeks gestation of pregnancy
CPT/HCPCS: 36415; 86787; 86803; 86850; 86900; 86901; 87340; 87389; 85025; 86762; 86780

== ENCOUNTER 2024-10-03 01:14 | Outpatient (CLI) | payer MEDICAID, SELFPAY ==
--- NOTE | 2024-10-03 06:15 | DI.US_ITS ---
Exam(s) US OB 2-3 TRIMESTER EXAM: US OB 2-3 TRIMESTER CLINICAL HISTORY: ,z3a.11. TECHNIQUE: Transabdominal obstetrical ultrasound performed. COMPARISON: US US OB 1ST TRIMESTER from 07/24/2024 FINDINGS: Number of fetuses: 1 position: CEPHALIC Placental location: ANTERIOR No evidence of previa. BIOMETRIC DATA: BPD: 4.54cm, 19weeks 5days HC: 16.77cm, 19weeks 3days AC: 15.21cm, 20weeks 3days FL: 3cm, 19weeks 2days Cisterna magna: 4.1mm Cerebellum: 1.8cm Lateral ventricle: EFW: 316.1g, 0.71lb, 89.5% Composite Age: 19weeks 5days PRIMITIVO: 02/22/2025 Heart Rate: 142bpm Amniotic fluid index: Amount of fluid is within normal limits. ANATOMICAL SURVEY: Four-chambered heart: Unremarkable. LVOT: Unremarkable. RVOT: Unremarkable. Left-sided stomach: Unremarkable. urinary bladder: Unremarkable. Bilateral kidneys: Unremarkable. Three-vessel cord: Unremarkable. Cord insertion: Unremarkable. Posterior fossa:Unremarkable. ventricles: Unremarkable. nose: Unremarkable. lips: Unremarkable. palate: Unremarkable. spine: Unremarkable. Two arms and two legs: Unremarkable. IMPRESSION: 1. Single live intrauterine gestation as above. 2. Normal anatomic survey. DATA REPOSITORY:
== END 2024-10-03 01:34 ==
PROVIDERS: Visit Provider Advanced Practice Midwife
DX: Z34.82 Encounter for supervision of other normal pregnancy, second trimester (principal); Z3A.20 20 weeks gestation of pregnancy
CPT/HCPCS: 76805